=== PATIENT | female | born 1985 | race Caucasian/White ===

== ENCOUNTER 2019-03-25 18:28 | Emergency (ER) | payer OTHER ==
[~2019-03-25] VITALS: Ht 170.2 cm; Wt 83.5 kg
[2019-03-25 18:40] VITALS: Ht 170.2 cm; Wt 83.5 kg
[2019-03-25 21:14] VITALS: BP 106/87
== END 2019-03-25 21:14 | disposition home or self-care (01) ==
LOC: ED 18:28
DX: K04.7 Periapical abscess without sinus (principal); L40.9 Psoriasis, unspecified; Z88.1 Allergy status to other antibiotic agents
CPT/HCPCS: J0561; J1885; J7512